=== PATIENT | female | born 1975 | race Caucasian/White ===

== ENCOUNTER 2018-07-10 17:26 | Emergency (ER) | payer MEDICAID, OTHER ==
--- NOTE | 2018-07-10 18:03 | Emergency Department Record ---
History of Present Illness - General Chief complaint: Rash Stated complaint: RASH Time Seen by Provider: 07/10/18 17:58 Source: Patient Mode of Arrival: Ambulatory Limitations: No limitations - History of Present Illness Initial comments: 43 yo female presents with a rash. She reports the gradual onset of the rash over two weeks. The rash itches. It is located in area of sweat. No fevers. No facial swelling. She has had this in the past. MD complaint: Rash Onset/Timin -: Week(s) (2) Location: Generalized Severity: Moderate Improves with: None Worsens with: None Context: None Associated symptoms: Itching Treatments Prior to Arrival: None - Related Data Previous Rx's Medication Instructions Recorded Fluconazole [Diflucan] 150 mg PO WEEKLY #2 tablet 07/10/18 Allergies Allergy/AdvReac Type Severity Reaction Status Date / Time cephalexin [From Keflex] Allergy RASH Verified 07/10/18 17:43 Travel Screening - Travel/Exposure Within Last 30 Days Have you traveled within the last 30 days?: No - Travel/Exposure Within Last Year Have you traveled outside the [place] in the last year?: No - Additonal Travel Details Have you been exposed to anyone with a communicable illness?: No - Travel Symptoms Symptom Screening: None Review of Systems Constitutional: Denies: Chills, Fever, Malaise, Weakness Eyes: Denies: Eye discharge ENT: Denies: Congestion, Throat pain Respiratory: Denies: Cough Cardiovascular: Denies: Chest pain, Syncope Endocrine: Denies: Fatigue Gastrointestinal: Denies: Diarrhea, Nausea, Vomiting Genitourinary: Denies: Dysuria Musculoskeletal: Reports: Myalgia (bottom of her feet for over a year). Denies : Arthralgia Skin: Reports: As per HPI, Rash. Denies: Bruising, Change in color Neurological: Denies: Headache Psychiatric: Denies: Anxiety Hematological/Lymphatic: Denies: Easy bleeding, Easy bruising Past Medical History - SOCIAL HISTORY Smoking Status: Former smoker Alcohol Use: Rare Drug Use: Heavy Drug Use Detail:: Marijuana - RESPIRATORY Hx Respiratory Disorders: No - CARDIOVASCULAR Hx Cardio Disorders: No - NEURO Hx Neuro Disorders: No - GI Hx GI Disorders: No - Hx Genitourinary Disorders: No - ENDOCRINE Hx Endocrine Disorders: No - MUSCULOSKELETAL Hx Musculoskeletal Disorders: Yes Comment:: both feet hurt in the evening. - PSYCH Hx Psych Problems: No - HEMATOLOGY/ONCOLOGY Hx Hematology/Oncology Disorders: No Family Medical History Any Significant Family History?: Yes Hx Diabetes: Father Hx Heart Disease: Father, Mother, Grandparents Hx Liver Disease: Mother Hx Stroke: Grandparents Physical Exam - General General Appearance: Alert, Oriented x3, Cooperative, No acute distress Limitations: No limitations - Head Head exam: Atraumatic, Normal inspection - Eye Eye exam: Normal appearance. negative: Conjunctival injection - ENT ENT exam: Normal exam Ear exam: Normal external inspection Nasal Exam: Normal inspection Mouth exam: Normal external inspection - Neck Neck exam: negative: Normal inspection - Respiratory Respiratory exam: Normal lung sounds bilaterally. negative: Wheezes - Cardiovascular Cardiovascular Exam: Regular rate, Normal rhythm, Normal heart sounds - Extremities Extremities exam: Tenderness. negative: Normal inspection, Normal capillary refill, Pedal edema Image of Feet: 1 - tender plantar surface, no redness, no swelling - Neurological Neurological exam: Alert, Oriented X3 - Psychiatric Psychiatric exam: Normal affect, Normal mood. negative: Agitated, Anxious - Skin Skin exam: Erythema, Rash Distribution of rash: Chest, Neck, RUE, LUE Description of rash: Other (annular patches, ). negative: Macular, Papular, Petechial, Purpuic, Urticarial, Vesicular Course Vital Signs 07/10/18 17:45 Temperature 97.9 F Pulse Rate 88 Respiratory 20 Rate Blood Pressure 120/62 Pulse Ox 96 - Reevaluation(s) Reevaluation #1: 07/10/18 18:40 Rash is consistent with tinea Diflucan Rx provided Disposition Disposition: Discharge Clinical Impression: Tinea corporis, Plantar fascia syndrome Disposition: Home, Self-Care Condition: (1) Good Additional Instructions: Call your doctor for the next available follow up appointment Return to the ER for a recheck if worse, any new concerns or questions Take the prescriptions provided as directed Review this ER visit and the tests performed with your family doctor Prescriptions: Fluconazole [Diflucan] 150 mg PO WEEKLY #2 tablet Referrals: REGAN CARRANZA M.D. [MEDICAL DOCTOR] - Forms: Patient Portal Access Time of Disposition: 18:03 Quality - Quality Measures Quality Measures: N/A - Blood Pressure Screening Does Patient Have Any of the Following: No Blood Pressure Classification: Normal BP Reading Systolic Measurement: 116 Diastolic Measurement: 60 Screening for High Blood Pressure: < Normal BP, F/U Not Required > [G8783]
== END 2018-07-10 18:23 | disposition home or self-care (01) ==
LOC: ER 17:26
DX: B35.4 Tinea corporis (principal); M72.2 Plantar fascial fibromatosis; Z87.891 Personal history of nicotine dependence
CPT/HCPCS: 99282

== ENCOUNTER 2019-05-11 22:38 | Emergency (ER) | payer MEDICAID ==
--- NOTE | 2019-05-11 23:17 | Emergency Department Record ---
History of Present Illness - General Chief complaint: Foreign Body GI/ Stated complaint: BUG IN GROIN AREA R LEG Time Seen by Provider: 05/11/19 22:53 Source: Patient Mode of Arrival: Ambulatory Limitations: No limitations - History of Present Illness Initial comments: 43 yo female presents to ED for evaluation of "bugs in my right upper thigh". Patient reports numerous lesions to the thighs bilaterally, however reports painful lesion to the inner right thigh for the past 1 week. Patient reports that she pulled a "bug with legs" out of the painful lesion, reports that the bug moves when she attempts to grab it. Patient denies health problems at her baseline, does report that [facility] put her on Amoxicillin 875 mg BID for her symptoms. MD complaint: Abscess/boil Onset/Timin -: Week(s) Location: RLE Severity: Moderate Quality: Burning Consistency: Intermittent Improves with: None Worsens with: None Associated symptoms: Denies other symptoms Treatments Prior to Arrival: None - Related Data Previous Rx's Medication Instructions Recorded Fluconazole [Diflucan] 150 mg PO WEEKLY #2 tablet 07/10/18 Clindamycin HCl 300 mg PO QID #27 capsule 05/11/19 Allergies Allergy/AdvReac Type Severity Reaction Status Date / Time cephalexin [From Keflex] Allergy RASH Verified 07/10/18 17:43 Travel Screening - Travel/Exposure Within Last 30 Days Have you traveled within the last 30 days?: No - Travel/Exposure Within Last Year Have you traveled outside the [place] in the last year?: No - Additonal Travel Details Have you been exposed to anyone with a communicable illness?: No - Travel Symptoms Symptom Screening: None Review of Systems Constitutional: Denies: Chills, Fever, Malaise, Night sweats Eyes: Denies: Eye discharge, Eye pain ENT: Denies: Congestion, Ear pain, Epistaxis Respiratory: Denies: Cough, Dyspnea Cardiovascular: Denies: Chest pain, Dyspnea on exertion Endocrine: Denies: Fatigue, Heat or cold intolerance Gastrointestinal: Denies: Abdominal pain, Nausea, Vomiting Genitourinary: Denies: Incontinence, Retention Musculoskeletal: Denies: Arthralgia, Back pain Skin: Reports: Lesions. Denies: Bruising, Change in color Neurological: Denies: Abnormal gait, Confusion, Headache, Seizure Psychiatric: Denies: Anxiety Hematological/Lymphatic: Denies: Anemia, Blood Clots Past Medical History - SOCIAL HISTORY Smoking Status: Former smoker Alcohol Use: None Drug Use: None - RESPIRATORY Hx Respiratory Disorders: No - CARDIOVASCULAR Hx Cardio Disorders: No - NEURO Hx Neuro Disorders: No - GI Hx GI Disorders: No - Hx Genitourinary Disorders: No - ENDOCRINE Hx Endocrine Disorders: No - MUSCULOSKELETAL Hx Musculoskeletal Disorders: Yes Comment:: both feet hurt in the evening. - PSYCH Hx Psych Problems: No - HEMATOLOGY/ONCOLOGY Hx Hematology/Oncology Disorders: No Family Medical History Any Significant Family History?: No Hx Diabetes: Father Hx Heart Disease: Father, Mother, Grandparents Hx Liver Disease: Mother Hx Stroke: Grandparents Physical Exam - General General Appearance: Alert, Oriented x3, Cooperative, Mild distress, Anxious Limitations: No limitations - Head Head exam: Atraumatic, Normocephalic, Normal inspection Head exam detail: negative: Abrasion, Contusion, Eaton's sign, General tenderness, Hematoma, Laceration - Eye Eye exam: Normal appearance. negative: Conjunctival injection, Periorbital swelling, Periorbital tenderness, Scleral icterus - ENT Ear exam: negative: Auricular hematoma, Auricular trauma Nasal Exam: negative: Active bleeding, Discharge, Dried blood, Foreign body Mouth exam: negative: Drooling, Laceration, Muffled voice, Tongue elevation - Neck Neck exam: Normal inspection. negative: Meningismus, Tenderness - Respiratory Respiratory exam: Normal lung sounds bilaterally. negative: Rales, Respiratory distress, Rhonchi, Stridor - Cardiovascular Cardiovascular Exam: Regular rate, Normal rhythm, Normal heart sounds - GI/Abdominal GI/Abdominal exam: Soft. negative: Rebound, Rigid, Tenderness - Rectal Rectal exam: Deferred - exam: Deferred - Extremities Extremities exam: Tenderness, Other (Numerous small cutaneous abscesses measuring <1.0 cm c/w folliculitis). negative: Calf tenderness, Pedal edema - Back Back exam: Denies: CVA tenderness (R), CVA tenderness (L) - Neurological Neurological exam: Alert, Normal gait, Oriented X3 - Psychiatric Psychiatric exam: Normal affect, Normal mood - Skin Skin exam: Normal color. negative: Abrasion Type of lesion: negative: abrasion Course Vital Signs 05/11/19 22:44 Temperature 97.8 F Pulse Rate [ 81 Pulse Ox Probe] Respiratory 20 Rate Blood Pressure 124/106 [Left Arm] Pulse Ox 98 - Reevaluation(s) Reevaluation #1: 05/11/19 23:26 After a thorough discussion with the patient and with nursing staff at the bedside, patient is unwilling to accept the diagnosis of cutaneous follicles/abscesses resulting from an overgrowth of bacteria on the skin. Patient is asking to have the more painful of her lesions incised to remove "the bug inside". Procedure Note: 8 mm cutaneous abscess overlying the inner right thigh was prepped and draped in sterile fashion. The lesion was then anesthetized with 1.5 mL of 1% Lidocaine with epinephrine with good anesthesia. The lesion was then incised with a #11 blade, lesion was then probed with curved hemostats. No FB or organic material/insects are found on examination. Patient tolerated the procedure well without complications. Patient was started on Clindamycin while in the ED for greater staph coverage, instructed to apply warm soaks twice daily. Patient appears stable for discharge at this time. Disposition Disposition: Discharge Clinical Impression: Cutaneous abscess Qualifiers: Site of cutaneous abscess: extremity Site of cutaneous abscess of extremity: lower extremity Laterality: right Qualified Code(s): L02.415 - Cutaneous abscess of right lower limb Disposition: Home, Self-Care Condition: (2) Stable Instructions: Warm Compress or Soak (ED) Additional Instructions: Return to ED if your symptoms worsen or if you have any concerns. Clindamycin as directed. Follow-up with your family doctor in 3-5 days as directed. Prescriptions: Clindamycin HCl 300 mg PO QID #27 capsule Forms: Patient Portal Access Time of Disposition: 23:17 Quality - Quality Measures Quality Measures: N/A - Blood Pressure Screening Does Patient Have Any of the Following: No Blood Pressure Classification: Hypertensive Reading Systolic Measurement: 124 Diastolic Measurement: 106 Screening for High Blood Pressure: < First Hypertensive BP, F/U Documented > [G8950] First Hypertensive Follow-up Interventions: Referral to alternative/primary care provider.
[2019-05-11] MEDS: CLINDAMYCIN 150 MG CAP PO ONE (23:32)
== END 2019-05-11 23:38 | disposition home or self-care (01) ==
LOC: ER 22:38
DX: L02.415 Cutaneous abscess of right lower limb (principal)
CPT/HCPCS: 10060; 99284